=== PATIENT | female | born 1970 | race Caucasian/White ===

== ENCOUNTER 2019-09-27 12:38 | Emergency (ER) | payer MEDICARE ==
--- NOTE | 2019-09-27 12:50 | ERPHSYRPT ---
- History of Present Illness Time Seen by Provider: 09/27/19 12:49 Source: patient Exam Limitations: no limitations Physician History: 49-year-old white female presents to the emergency department with palpitations patient was seen at her GI doctor's office where she had a heart rate in the 150s patient denies chest pain. She has chronic shortness of breath. Patient denies abdominal pain. Patient was seen by her GI doctor for dyspepsia. Patient has a history of rheumatoid arthritis and is taking methotrexate, folic acid, meloxicam, prednisone and hydrocodone as well as Orencia. 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 Patient's heart rate on arrival is high 90s to low 100s. Timing/Duration: today Severity: mild Modifying Factors: Improves With: nothing Associated Symptoms: shortness of breath (Chronic), No nausea, No vomiting, No abdominal pain, No chest pain Allergies/Adverse Reactions: ciprofloxacin [From Cipro] Allergy (Verified 11/13/14 21:23) Hives ciprofloxacin HCl [From Cipro] Allergy (Verified 11/13/14 21:23) Hives Home Medications: Abatacept [Orencia] 125 mg SQ WEEKLY 02/04/13 [History] Folic Acid 1 mg [Folate 1 mg] 1 mg PO DAILY 02/04/13 [History] Hydrocodone/APAP 5/325 [[place] 5/325 mg] 1 each PO QIDPRN 02/04/13 [History ] Levothyroxine Sodium 100 Mcg [Synthroid 100 Mcg] 100 mcg PO DAILY 02/04/13 [History] Meloxicam 7.5 mg [Mobic 7.5 MG] 7.5 mg PO BID 02/04/13 [History] Methotrexate Sodium [Methotrexate] 25 mg IJ WEEKLY 02/04/13 [History] Prednisone 10 mg [Deltasone 10 mg] 10 mg PO DAILY 02/04/13 [History] Ferrous Sulfate 325 mg [Feosol 325 mg] 325 mg PO DAILY 01/17/14 [History] Hx Tetanus, Diphtheria Vaccination/Date Given: Yes (UP TO DATE) Hx Influenza Vaccination/Date Given: Yes Hx Pneumococcal Vaccination/Date Given: Yes Travel Risk - International Travel Have you traveled outside of the country in past 3 weeks: No Have you or anyone close to you been diagnosed with or: No Do your reside in a community with a known COVID-19 case?: Yes If Yes where:: [facility] - Coronavirus Screening Has patient experienced Coronavirus symptoms: No - Review of Systems Constitutional: No Symptoms Eyes: No Symptoms Ears, Nose, & Throat: No Symptoms Respiratory: Dyspnea on Exertion ([place]), No Cough, No Stridor, No Wheezing Cardiac: Palpitations, No Chest Pain Abdominal/Gastrointestinal: No Symptoms Genitourinary Symptoms: No Symptoms Musculoskeletal: No Symptoms Skin: No Symptoms Neurological: No Symptoms Psychological: No Symptoms Endocrine: No Symptoms Hematologic/Lymphatic: No Symptoms Immunological/Allergic: No Symptoms All Other Systems: Reviewed and Negative - Past Medical History Pertinent Past Medical History: Yes Neurological History: Peripheral Neuropathy ENT History: No Pertinent History Cardiac History: No Pertinent History Respiratory History: COPD Endocrine Medical History: Hypothyroidism Musculoskeletal History: Osteoarthritis, Rheumatoid Arthritis GI Medical History: No Pertinent History History: No Pertinent History Psycho-Social History: No Pertinent History Female Reproductive Disorders: No Pertinent History Other Medical History: Osteopenia, B hands and feet neuropathy - Past Surgical History Past Surgical History: Yes Neuro Surgical History: No Pertinent History Cardiac: No Pertinent History Respiratory: No Pertinent History Gastrointestinal: No Pertinent History Genitourinary: No Pertinent History Musculoskeletal: Joint Replacement, Other Female Surgical History: Section, Hysterectomy Other Surgical History: TMJ X 3 ,FOOT SURG, HAND SURG, LEFT ELBOW SURGERY FOR NERVE DAMAGE. BILAT HIP - Social History Smoking Status: Never smoker Exposure to second hand smoke: No Drug Use: none Patient Lives Alone: No - Nursing Vital Signs Nursing Vital Signs: Initial Vital Signs Temperature 96.8 F 09/27/19 12:40 Pulse Rate 92 H 09/27/19 12:40 Respiratory Rate 16 09/27/19 12:40 O2 Sat by Pulse Oximetry 92 L 09/27/19 12:40 - Physical Exam General Appearance: no apparent distress, alert, anxiety, obese Eye Exam: PERRL/EOMI, eyes nml inspection Ears, Nose, Throat Exam: normal ENT inspection, moist mucous membranes Neck Exam: normal inspection, non-tender, supple, full range of motion Respiratory Exam: normal breath sounds, lungs clear, airway intact, No chest tenderness, No respiratory distress Cardiovascular Exam: regular rate/rhythm, normal heart sounds, normal peripheral pulses Gastrointestinal/Abdomen Exam: soft, normal bowel sounds, No tenderness Pelvic Exam: not done Rectal Exam: not done Back Exam: normal inspection, normal range of motion, No CVA tenderness, No vertebral tenderness Extremity Exam: normal inspection, normal range of motion, pelvis stable Neurologic Exam: alert, oriented x 3, cooperative, rn lactation II-XII nml as tested, normal mood/affect, nml cerebellar function, nml station & gait Skin Exam: normal color, warm, dry Lymphatic Exam: No adenopathy SpO2 Interpretation: normal O2 Delivery: Room Air - Course Nursing assessment & vital signs reviewed: Yes EKG Interpreted by Me: RATE (95), Sinus Rhythm, NORMAL AXIS, NORMAL INTERVALS, NORMAL QRS, Non-specific ST Changes, Other (No acute ischemic changes. No comparison EKG) Ordered Tests: Active Orders 24 hr Category Date Time Status Epic [facility] STAT Care 09/27/19 13:02 Active EKG-ER Only STAT Care 09/27/19 12:59 Active IV Insertion STAT Care 09/27/19 12:59 Active Pulse Oximetry (ED) STAT Care 09/27/19 12:59 Active CBC W DIFF Stat Lab 09/27/19 13:09 Completed CMP Stat Lab 09/27/19 13:09 Completed CULTURE,URINE Stat Lab 09/27/19 Received MAGNESIUM Stat Lab 09/27/19 13:09 Completed NT PRO BNP Stat Lab 09/27/19 13:09 Completed TROPONIN Q3H Lab 09/27/19 13:09 Completed TROPONIN Q3H Lab 09/27/19 16:00 Ordered TROPONIN Q3H Lab 09/27/19 19:00 Ordered TROPONIN Q3H Lab 09/27/19 22:00 Ordered TROPONIN Q3H Lab 09/28/19 01:00 Ordered UA W/RFX UR CULTURE Stat Lab 09/27/19 Completed Holter Monitor ONCE RT 09/27/19 14:31 Ordered Medication Summary Discontinued Medications Generic Name Dose Route Start Last Admin Trade Name Freq PRN Reason Stop Dose Admin Sodium Chloride 1,000 mls @ 999 mls/hr 09/27/19 12:59 09/27/19 13:42 Sodium Chloride 0.9% 1000 Ml IV 09/27/19 13:59 999 mls/hr .Q1H1M STA Administration Sodium Chloride Confirm 09/27/19 13:42 Sodium Chloride 0.9% 1000 Ml Administered 09/27/19 13:43 Dose 1,000 mls @ ud .ROUTE .STK-MED ONE Lab/Rad Data: Laboratory Result Diagrams 09/27/19 13:09 09/27/19 13:09 Laboratory Results 09/27/19 09/27/19 09/27/19 Range/Units Unknown 13:09 13:09 WBC (4.0-10.5) K/mm3 RBC (4.1-5.4) M/mm3 Hgb (12.0-16.0) gm/dl Hct (35-47) % MCV (78-100) fl MCH (26-32) pg MCHC (32-36) g/dl RDW (11.5-14.0) % Plt Count (150-450) K/mm3 MPV (7.5-11.0) fl Gran % (36.0-66.0) % Eos # (Auto) (0-0.5) Absolute Lymphs (auto) (1.0-4.6) Absolute Monos (auto) (0.0-1.3) Lymphocytes % (24.0-44.0) % Monocytes % (0.0-12.0) % Eosinophils % (0.00-5.0) % Basophils % (0.0-0.4) % Absolute Granulocytes (1.4-6.9) Basophils # (0-0.4) Sodium 142 (137-145) mmol/L Potassium 3.6 (3.5-5.1) mmol/L Chloride 109 H (98-107) mmol/L Carbon Dioxide 23 (22-30) mmol/L Anion Gap 13.3 (5-15) MEQ/L BUN 16 (7-17) mg/dL Creatinine 0.93 (0.52-1.04) mg/dL Estimated GFR > 60.0 ML/MIN Glucose 129 H (74-106) mg/dL Calcium 9.3 (8.4-10.2) mg/dL Magnesium 1.9 (1.6-2.3) mg/dL Total Bilirubin 0.60 (0.2-1.3) mg/dL AST 42 H (14-36) U/L ALT 34 (0-35) U/L Alkaline Phosphatase 132 H (38-126) U/L Troponin I < 0.012 (0.000-0.034) ng/mL NT-Pro-B Natriuret Pep 37.5 (0-900) pg/mL Serum Total Protein 7.3 (6.3-8.2) g/dL Albumin 4.3 (3.5-5.0) g/dL Urine Color YELLOW (YELLOW) Urine Appearance CLOUDY (CLEAR) Urine pH 5.0 (5-6) Ur Specific [place] 1.023 (1.005-1.025) Urine Protein 30 (Negative) Urine Ketones NEGATIVE (NEGATIVE) Urine Blood NEGATIVE (0-5) Jason/ul Urine Nitrite NEGATIVE (NEGATIVE) Urine Bilirubin NEGATIVE (NEGATIVE) Urine Urobilinogen NEGATIVE (0-1) mg/dL Ur Leukocyte Esterase MODERATE (NEGATIVE) Urine WBC (Auto) 11-15 (0-5) /HPF Urine RBC (Auto) 6-10 (0-2) /HPF U Epithel Cells (Auto) FEW (FEW) /HPF Urine Bacteria (Auto) RARE (NEGATIVE) /HPF Urine Mucus (Auto) MANY (NEGATIVE) /HPF Urine Culture Reflexed YES (NO) Urine Glucose NEGATIVE (NEGATIVE) mg/dL 09/27/19 Range/Units 13:09 WBC 8.3 (4.0-10.5) K/mm3 RBC 4.88 (4.1-5.4) M/mm3 Hgb 13.4 (12.0-16.0) gm/dl Hct 42.6 (35-47) % MCV 87.3 (78-100) fl MCH 27.5 (26-32) pg MCHC 31.5 L (32-36) g/dl RDW 14.9 H (11.5-14.0) % Plt Count 396 (150-450) K/mm3 MPV 9.9 (7.5-11.0) fl Gran % 71.9 H (36.0-66.0) % Eos # (Auto) 0.26 (0-0.5) Absolute Lymphs (auto) 1.46 (1.0-4.6) Absolute Monos (auto) 0.56 (0.0-1.3) Lymphocytes % 17.6 L (24.0-44.0) % Monocytes % 6.8 (0.0-12.0) % Eosinophils % 3.1 (0.00-5.0) % Basophils % 0.6 (0.0-0.4) % Absolute Granulocytes 5.95 (1.4-6.9) Basophils # 0.05 (0-0.4) Sodium (137-145) mmol/L Potassium (3.5-5.1) mmol/L Chloride (98-107) mmol/L Carbon Dioxide (22-30) mmol/L Anion Gap (5-15) MEQ/L BUN (7-17) mg/dL Creatinine (0.52-1.04) mg/dL Estimated GFR ML/MIN Glucose (74-106) mg/dL Calcium (8.4-10.2) mg/dL Magnesium (1.6-2.3) mg/dL Total Bilirubin (0.2-1.3) mg/dL AST (14-36) U/L ALT (0-35) U/L Alkaline Phosphatase (38-126) U/L Troponin I (0.000-0.034) ng/mL NT-Pro-B Natriuret Pep (0-900) pg/mL Serum Total Protein (6.3-8.2) g/dL Albumin (3.5-5.0) g/dL Urine Color (YELLOW) Urine Appearance (CLEAR) Urine pH (5-6) Ur Specific [place] (1.005-1.025) Urine Protein (Negative) Urine Ketones (NEGATIVE) Urine Blood (0-5) Jason/ul Urine Nitrite (NEGATIVE) Urine Bilirubin (NEGATIVE) Urine Urobilinogen (0-1) mg/dL Ur Leukocyte Esterase (NEGATIVE) Urine WBC (Auto) (0-5) /HPF Urine RBC (Auto) (0-2) /HPF U Epithel Cells (Auto) (FEW) /HPF Urine Bacteria (Auto) (NEGATIVE) /HPF Urine Mucus (Auto) (NEGATIVE) /HPF Urine Culture Reflexed (NO) Urine Glucose (NEGATIVE) mg/dL - Progress Progress: improved Progress Note: 09/27/19 14:32 Medical decision making: 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 However, the patient arrives to the emergency department with a normal heart rate. Her vital signs are normal upon arrival. She has been in normal sinus rhythm with a normal blood pressure throughout her stay here. Her diagnosis is palpitations as well as urinary tract infection. It is possible that her urinary tract infection has caused her palpitation symptoms. We will treat her urinary tract infection here in the emergency room with a gram of Rocephin. We will also place her on a Holter monitor to be monitored for 48 hours. Her cardiac work-up here is negative. We will have her see a contract management specialist as an outpatient and write a prescription for 7 more days of an antibiotic to treat her urinary tract infection. Counseled pt/family regarding: lab results, diagnosis, need for follow-up, rad results - Departure Departure Disposition: Home Clinical Impression: Palpitations, Urinary tract infection Condition: Stable Critical Care Time: No Referrals: OSKAR PARK [Primary Care Provider] - Additional Instructions: Drink plenty of fluids. Take your antibiotics as prescribed. Follow-up with your primary care physician and a farm owner operator for further evaluation. Wear the Holter monitor as prescribed. Prescriptions: Cefdinir 300 mg PO BID 7 Days #14 capsule
[2019-09-27 13:09] LABS: Absolute Neutrophil Ct (ANC) 5.95 (1.4-6.9); BASOPHIL % 0.6 % (0.0-0.4); Basophil (Absolute #) 0.05 (0-0.4); Eosinophil % 3.1 % (0.00-5.0); Eosinophil (Absolute #) 0.26 (0-0.5); Hematocrit 42.6 % (35-47); Hemoglobin 13.4 gm/dl (12.0-16.0); Lymphocyte (Absolute #) 1.46 (1.0-4.6); Lymphocytes % 17.6 % (24.0-44.0); Mean Cell Volume 87.3 fl (78-100); Mean Corpuscular Hemoglobin 27.5 pg (26-32); Mean Corpuscular Hgb Concent. 31.5 g/dl (32-36); Mean Platelet Volume 9.9 fl (7.5-11.0); Monocyte (Absolute #) 0.56 (0.0-1.3); Monocytes % 6.8 % (0.0-12.0); Neutrophil % 71.9 % (36.0-66.0); Platelet Count 396 K/mm3 (150-450); Red Blood Count 4.88 M/mm3 (4.1-5.4); Red Cell Distribution Width 14.9 % (11.5-14.0); White Blood Count 8.3 K/mm3 (4.0-10.5)
[2019-09-27 13:31] LABS: ALBUMIN 4.3 g/dL (3.5-5.0); ALKALINE PHOSPHATASE 132 U/L (38-126); ANION GAP 13.3 MEQ/L (5-15); BLOOD UREA NITROGEN 16 mg/dL (7-17); CHLORIDE 109 mmol/L (98-107); Calcium 9.3 mg/dL (8.4-10.2); Carbon Dioxide 23 mmol/L (22-30); Creatinine 1 0.93 mg/dL (0.52-1.04); Glucose 129 mg/dL (74-106); MAGNESIUM 1.9 mg/dL (1.6-2.3); NT PRO BNP 37.5 pg/mL (0-900); Potassium 3.6 mmol/L (3.5-5.1); SGOT/AST 42 U/L (14-36); SGPT/ALT 34 U/L (0-35); SODIUM 142 mmol/L (137-145); Total Protein 7.3 g/dL (6.3-8.2)
[2019-09-27] MEDS ORDERED: Sodium Chloride 0.9% 1000 ML 1,000 ML ONE (13:42)
[2019-09-27] MEDS: Sodium Chloride 0.9% 1000 ML 1,000 ML IV STA (13:42)
[2019-09-27 14:07] LABS: Appearance CLOUDY (CLEAR); Bacteria RARE /HPF (NEGATIVE); Bilirubin NEGATIVE (NEGATIVE); Blood NEGATIVE Ery/ul (0-5); Epithelial Cells FEW /HPF (FEW); Glucose NEGATIVE (NEGATIVE); Ketones NEGATIVE (NEGATIVE); Leukocyte Esterase MODERATE (NEGATIVE); Mucus MANY /HPF (NEGATIVE); Nitrite NEGATIVE (NEGATIVE); Protein,Urine Dip 30 (Negative); Specific Gravity 1.023 (1.005-1.025); Urobilinogen NEGATIVE mg/dL (0-1)
[2019-09-27] MEDS ORDERED: ROCEPHIN 1 Gm-D5w 50 ml Bag** 1 G/50 ML IVPB IV ONE (14:37)
[2019-09-27] MEDS: ROCEPHIN 1 Gm-D5w 50 ml Bag** 1 G/50 ML IVPB IV STA (14:44)
[2019-09-27 16:19] VITALS: BP 119/79; PULSE 88; O2SAT 92
== END 2019-09-27 16:16 | disposition home or self-care (01) ==
LOC: ED 12:38
DX: R00.2 Palpitations (principal); N39.0 Urinary tract infection, site not specified; M06.9 Rheumatoid arthritis, unspecified; G62.9 Polyneuropathy, unspecified; M85.80 Other specified disorders of bone density and structure, unspecified site; Z79.899 Other long term (current) drug therapy; J44.9 Chronic obstructive pulmonary disease, unspecified
CPT/HCPCS: 36000; 36415; 80053; 81001; 83735; 83880; 84484; 85025; 87086; 93005; 93041; 94760; 96360; 96365; 99284; J0696

== ENCOUNTER 2021-11-05 05:58 | Day surgery (SDC) | payer MEDICARE ==
[2021-11-05] MEDS ORDERED: Lactated Ringers 1,000 ML IV ONE ×2 (06:43→08:07)
[2021-11-05] MEDS ORDERED: Lactated Ringers 1,000 ML IV SCH (07:00)
[2021-11-05] MEDS ORDERED: DIPRIVAN 200 MG/20 ML IV ONE ×2 (07:29→07:44)
[2021-11-05] MEDS ORDERED: Versed 2 MG/2 ML Injection ONE (07:29)
[2021-11-05 08:47] VITALS: BP 144/83; PULSE 77; O2SAT 99
--- NOTE | 2021-11-05 09:53 | OP ---
SURGERY DATE/TIME: 11/05/2021 0731 PREOPERATIVE DIAGNOSIS: History of colon polyps. POSTOPERATIVE DIAGNOSIS: Normal colon. PROCEDURE: Colonoscopy. SURGEON: Dr. Jaspreet Garcia. ANESTHESIA: MAC. Medications given by anesthesia department. HISTORY: The patient is a 51-year-old white female who reports now five years from her previous colonoscopy. She reports five polyps were removed on the previous examination. The patient was felt the need to have endoscopic evaluation. She was appraised of the risks of the procedure including the risk of perforation, phlebitis, untoward reaction to medication, bleeding and missed lesions. The patient verbalized her understanding and desired to have the procedure performed. DESCRIPTION OF PROCEDURE: The patient was given the medications by the anesthesia department. She had continuous pulse oximetry, ECG monitoring, intermittent blood pressure monitoring during the examination. She was placed in the left lateral decubitus position. A digital rectal examination was performed and revealed normal anal sphincter tone and no masses. The flexible Olympus pediatric colonoscope was used to intubate the rectum. A view of the colon was developed sequentially to the cecum. Upon insertion and withdrawal, including a retroflex view in the rectum, no mucosal lesions were encountered. The scope was removed from the patient who tolerated the procedure well and was sent back to OP recovery in good condition. The prep was noted to be fair.
== END 2021-11-05 08:58 | disposition home or self-care (01) ==
LOC: SDC 05:58
PROVIDERS: ATTEND Family Medicine
DX: Z09 Encounter for follow-up examination after completed treatment for conditions other than malignant neoplasm (principal); Z86.010 Personal history of colon polyps
CPT/HCPCS: J2250; J2704

== ENCOUNTER 2023-06-07 15:56 | Emergency (ER) | payer MEDICARE ==
[2023-06-07 16:15] VITALS: TEMP 97.1
[2023-06-07 16:28] LABS: Appearance Clear (Clear); Bacteria None Seen /HPF (None Seen); Bilirubin Negative (Negative); Blood Negative (Negative); Epithelial Cells Rare /HPF (None Seen); Glucose, Urine Negative (Negative); Hyaline Casts NONE SEEN /LPF (0-2); Ketones Trace (Negative); Leukocyte Esterase Small (Negative); Nitrite Negative (Negative); Ph 6.5 (4.6-8.0); Protein,Urine Dip Negative (Negative); RBC 0-2 /HPF (0-5)
[2023-06-07 16:29] LABS: ADD URINE CULTURE? NO (NO)
[2023-06-07] MEDS ORDERED: MORPHINE SULFATE 2 MG INJ IV ONE ×2 (16:37→18:49)
[2023-06-07] MEDS ORDERED: MORPHINE SULFATE 2 MG INJ ONE ×2 (16:40→18:55)
[2023-06-07] MEDS ORDERED: Sodium Chloride 0.9% 1000 ML 1,000 ML ONE (16:40)
[2023-06-07] MEDS ORDERED: Sodium Chloride 0.9% 1000 ML 1,000 ML IV SCH (16:45)
[2023-06-07 16:46] LABS: Absolute Neutrophil Ct (ANC) 3.59 x10^3/uL (1.4-6.9); BASOPHIL % 1.1 % (0.0-0.4); Basophil (Absolute #) 0.06 x10^3/uL (0-0.4); Eosinophil % 1.2 % (0.00-5.0); Eosinophil (Absolute #) 0.07 x10^3/uL (0-0.5); Hematocrit 39.3 % (35-47); Hemoglobin 12.3 g/dL (12.0-16.0); IMMATURE GRAN # 0.01 x10^3u/L (0.00-0.03); IMMATURE GRAN % 0.2 % (0.00-0.4); Lymphocyte (Absolute #) 1.47 x10^3/uL (1.0-4.6); Lymphocytes % 26.2 % (24.0-44.0); Mean Cell Volume 87.5 fL (78-100); Mean Corpuscular Hemoglobin 27.4 pg (26-32); Mean Corpuscular Hgb Concent. 31.3 g/dL (32-36); Mean Platelet Volume 9.7 fL (7.5-11.0); Monocyte (Absolute #) 0.41 x10^3/uL (0.0-1.3); Monocytes % 7.3 % (0.0-12.0); Platelet Count 421 x10^3/uL (150-450); Red Blood Count 4.49 x10^6/uL (4.1-5.4); Red Cell Distribution Width 14.4 % (11.5-14.0); White Blood Count 5.6 x10^3/uL (4.0-10.5)
--- NOTE | 2023-06-07 16:49 | ERPHSYRPT ---
- History of Present Illness Historian: patient Exam Limitations: no limitations Patient Subjective Stated Complaint: Pt c/o of caren lower abdominal pain for the past 6 days Triage Nursing Assessment: Pt brought self to the ER, vitals wnl, rates abdominal pain as 10/10, pain was originally on the LLQ and now it is on caren sides, the pain comes in waves and is stabbing and sharp, no correlation with eating, pulses normal, skin n/w/d, still has appendix, pt states that she drinks a lot of water but her urine was dark, pt walks with a walker, pt has a hx of gastric bypass Timing/Duration: week(s) (1), intermittent Activities at Onset: none Quality: sharpness, stabbing Abdominal Pain Onset Location: RLQ, LLQ, suprapubic Pain Radiation: RLQ, LLQ Severity of Pain-Max: severe Severity of Pain-Current: moderate Modifying Factors: Improves With: nothing Associated Symptoms: denies symptoms Previous symptoms: same symptoms as today (x 1wk) Hx Tetanus, Diphtheria Vaccination/Date Given: Yes (UP TO DATE) Hx Influenza Vaccination/Date Given: Yes Hx Pneumococcal Vaccination/Date Given: Yes <Elbert Dooley - Last Filed: 06/07/23 19:03> <STEPHEN DAVILA - Last Filed: 06/07/23 19:33> - History of Present Illness Time Seen by Provider: 06/07/23 16:15 Physician History: 52yo f pmhx RA presents for low abdominal pain x 1wk, states pain is intermitte nt, stabbing in nature, started in LLQ but now involves RLQ and suprapubic region. Mother denies any n/v/d, states she has been eating/drinking like normal, has not eaten anything out of the ordinary. Pt reports hx of hysterectomy in 2011. Pt denies any cp, soa, MANUEL, vaginal bleeding, recent abdominal trauma. (Elbert Dooley) Allergies/Adverse Reactions: amoxicillin [From Augmentin] Allergy (Verified 06/07/23 16:15) Hives ciprofloxacin [From Cipro] Allergy (Verified 06/07/23 16:15) Hives ciprofloxacin HCl [From Cipro] Allergy (Verified 06/07/23 16:15) Hives clavulanic acid [From Augmentin] Allergy (Verified 06/07/23 16:15) Hives Home Medications: Albuterol Sulfate [Proair Respiclick] 90 mcg IH UD 10/25/21 [History] Duloxetine HCl [Cymbalta] 60 mg PO BID 10/25/21 [History] Hydroxychloroquine Sulfate [Plaquenil] 150 mg PO BID 10/25/21 [History] Levothyroxine Sodium 150 Mcg [Synthroid 150 Mcg] 150 mcg PO DAILY 10/25/21 [History] Multivitamin 1 each PO TID 10/25/21 [History] Rituximab 500 MG [Rituxan 500 MG] 0 mg IV UD 10/25/21 [History] Triamcinolone 0.1% Cream [Kenalog 0.1% Cream 15 gm] 1 applic TP UD PRN 10/25/21 [History] dilTIAZem HCL [Cardizem] 30 mg PO QID 10/25/21 [History] Imipramine HCl 75 mg PO HS 11/13/22 [History] methocarbamoL [Methocarbamol] 750 mg PO Q8HPRN PRN 11/13/22 [History] Denosumab 60 mg [Prolia 60 mg Injection] 60 mg SQ DIRECTIONS UNKNOWN 01/07/23 [History] Solifenacin Succinate [Vesicare] 10 mg PO DAILY 05/15/23 [History] Travel Risk - International Travel Have you traveled outside of the country in past 3 weeks: No - Vaccine Status Have you recieved a Covid-19 vaccination: Yes [employer] Member: [employer] - Vaccination Dates Date of 2cond Vaccination (if applicable): 2020 <Elbert Dooley - Last Filed: 06/07/23 19:03> - Review of Systems Constitutional: No Symptoms Respiratory: No Symptoms Cardiac: No Symptoms Abdominal/Gastrointestinal: Abdominal Pain, No Nausea, No Vomiting, No Diarrhea, No Constipation, No Hematemesis, No Appetite Changes Genitourinary Symptoms: No Dysuria, No Frequency, No Hematuria, No Urgency, No Vaginal Bleeding <Elbert Dooley - Last Filed: 06/07/23 19:03> - Past Medical History Pertinent Past Medical History: Yes Neurological History: Peripheral Neuropathy ENT History: No Pertinent History Cardiac History: Arrhythmia Respiratory History: COPD Endocrine Medical History: Hyperthyroidism, Other Musculoskeletal History: Rheumatoid Arthritis GI Medical History: No Pertinent History History: No Pertinent History Psycho-Social History: No Pertinent History Female Reproductive Disorders: No Pertinent History Other Medical History: RAYNAUD'S, FATTY LIVER, HX KIDNEY STONES 2016. PT. HAS BILATERAL THAS - REVISION. BILATERAL TKAS 2 REVISIONS R AND 1 L. - Past Surgical History Past Surgical History: Yes Neuro Surgical History: No Pertinent History Cardiac: No Pertinent History Respiratory: No Pertinent History Gastrointestinal: No Pertinent History Genitourinary: No Pertinent History Musculoskeletal: Joint Replacement, Other Female Surgical History: Section, Hysterectomy Other Surgical History: TMJ X 3 ,FOOT SURG, HAND SURG, LEFT ELBOW SURGERY FOR NERVE DAMAGE. BILAT HIP. caren knee replacement/see above - Social History Smoking Status: Never smoker Exposure to second hand smoke: No Drug Use: none Patient Lives Alone: Yes <Elbert Dooley - Last Filed: 06/07/23 19:03> - Physical Exam General Appearance: no apparent distress Respiratory Exam: normal breath sounds, lungs clear, airway intact Cardiovascular Exam: regular rate/rhythm, normal heart sounds Gastrointestinal/Abdomen Exam: soft, tenderness (over suprapubic region), No distention, No guarding, No rebound Pelvic Exam: not done Neurologic Exam: alert, oriented x 3, cooperative SpO2 Interpretation: normal SpO2: 100 O2 Delivery: Room Air <Elbert Dooley - Last Filed: 06/07/23 19:03> - Nursing Vital Signs Nursing Vital Signs: Initial Vital Signs Temperature 97.1 F 06/07/23 16:01 Pulse Rate 100 H 06/07/23 16:01 Blood Pressure 126/84 06/07/23 16:01 O2 Sat by Pulse Oximetry 100 06/07/23 16:01 Pain Scale Pain Intensity 0 - Course Nursing assessment & vital signs reviewed: Yes <STEPHEN DAVILA - Last Filed: 06/07/23 19:33> Ordered Tests: Active Orders 24 hr Category Date Time Status IV Insertion STAT Care 06/07/23 16:15 Active ABDOMEN AND PELVIS W CONTRAST [CT] Stat Exams 06/07/23 17:31 Completed CBC W DIFF Stat Lab 06/07/23 16:30 Completed CMP Stat Lab 06/07/23 16:30 Completed LIPASE Stat Lab 06/07/23 16:30 Completed UA W/RFX UR CULTURE Stat Lab 06/07/23 16:16 Completed Medication Summary Generic Name Dose Route Start Last Admin Trade Name Prerna PRN Reason Stop Dose Admin Sodium Chloride 1,000 mls @ 100 mls/hr 06/07/23 16:45 06/07/23 16:43 Sodium Chloride 0.9% 1000 Ml IV 07/07/23 16:44 100 mls/hr .Q10H LOLLY Administration Discontinued Medications Generic Name Dose Route Start Last Admin Trade Name Prerna PRN Reason Stop Dose Admin Morphine Sulfate 2 mg 06/07/23 16:37 06/07/23 16:43 Morphine Sulfate 2 Mg/Ml Inj IV 06/07/23 16:38 2 mg STAT ONE Administration Morphine Sulfate Confirm 06/07/23 16:40 Morphine Sulfate 2 Mg/Ml Inj Administered 06/07/23 16:41 Dose 2 mg .ROUTE .STK-MED ONE Morphine Sulfate 2 mg 06/07/23 18:49 06/07/23 18:57 Morphine Sulfate 2 Mg/Ml Inj IV 06/07/23 18:50 2 mg STAT ONE Administration Morphine Sulfate Confirm 06/07/23 18:55 Morphine Sulfate 2 Mg/Ml Inj Administered 06/07/23 18:56 Dose 2 mg .ROUTE .STK-MED ONE Lab/Rad Data: Laboratory Result Diagrams 06/07/23 16:30 06/07/23 16:30 Laboratory Results 06/07/23 06/07/23 06/07/23 Range/Units 16:30 16:30 16:16 WBC 5.6 (4.0-10.5) x10^3/uL RBC 4.49 (4.1-5.4) x10^6/uL Hgb 12.3 (12.0-16.0) g/dL Hct 39.3 (35-47) % MCV 87.5 (78-100) fL MCH 27.4 (26-32) pg MCHC 31.3 L (32-36) g/dL RDW 14.4 H (11.5-14.0) % Plt Count 421 (150-450) x10^3/uL MPV 9.7 (7.5-11.0) fL Gran % 64.0 (36.0-66.0) % Immature Gran % (Auto) 0.2 (0.00-0.4) % Nucleat RBC Rel Count 0.0 (0.00-0.1) % Eos # (Auto) 0.07 (0-0.5) x10^3/uL Immature Gran # (Auto) 0.01 (0.00-0.03) x10^3u/L Absolute Lymphs (auto) 1.47 (1.0-4.6) x10^3/uL Absolute Monos (auto) 0.41 (0.0-1.3) x10^3/uL Absolute Nucleated RBC 0.00 (0.00-0.01) x10^3u/L Lymphocytes % 26.2 (24.0-44.0) % Monocytes % 7.3 (0.0-12.0) % Eosinophils % 1.2 (0.00-5.0) % Basophils % 1.1 (0.0-0.4) % Absolute Granulocytes 3.59 (1.4-6.9) x10^3/uL Basophils # 0.06 (0-0.4) x10^3/uL Sodium 138 (137-145) mmol/L Potassium 3.7 (3.5-5.1) mmol/L Chloride 110 H (98-107) mmol/L Carbon Dioxide 23 (22-30) mmol/L Anion Gap 8.8 (5-15) MEQ/L BUN 12 (7-17) mg/dL Creatinine 0.64 (0.52-1.04) mg/dL Estimated GFR 105.6 ML/MIN Glucose 118 H (74-106) mg/dL Calcium 8.6 (8.4-10.2) mg/dL Total Bilirubin 0.90 (0.2-1.3) mg/dL AST 29 (14-36) U/L ALT 22 (0-35) U/L Alkaline Phosphatase 110 (38-126) U/L Serum Total Protein 7.2 (6.3-8.2) g/dL Albumin 4.2 (3.5-5.0) g/dL Lipase 23 (23-300) U/L Urine Color Yellow (Yellow) Urine Appearance Clear (Clear) Urine pH 6.5 (4.6-8.0) Ur Specific [place] 1.020 (1.005-1.030) Urine Protein Negative (Negative) Urine Glucose (UA) Negative (Negative) mg/dL Urine Ketones Trace A (Negative) Urine Blood Negative (Negative) Urine Nitrite Negative (Negative) Urine Bilirubin Negative (Negative) Urine Urobilinogen 1.0 A (0.2) mg/dL Ur Leukocyte Esterase Small A (Negative) U Hyaline Cast (Auto) NONE SEEN (0-2) /LPF Urine Microscopic RBC 0-2 (0-5) /HPF Urine Microscopic WBC 3-5 (0-5) /HPF Ur Epithelial Cells Rare (None Seen) /HPF Urine Bacteria None Seen (None Seen) /HPF Urine Culture Reflexed NO (NO) <Elbert Dooley - Last Filed: 06/07/23 19:03> - Progress Progress: improved <STEPHEN DAVILA - Last Filed: 06/07/23 19:33> - Progress Progress Note: 06/07/23 19:03 pt discussed and care signed out to Dr Callaway (Elbert Dooley) 06/07/23 19:23 The patient was initially seen and managed by , please refer to his detailed H&P. The patient presented with lower abdominal pain X 7 days. Her initial work up is WNL, CT Abdomen and Pelvis did not demonstrate any acute findings, except for the 10 cm left adrenal nodule. The patient's pain right now is down to 2/10, the patient received 2 doses of Morphine sulfate, she is feeling better. Her physical exam, apart from benign lower abdominal tenderness is Benign. The above findings were discussed with the patient, all her questions and concerns were answered and addressed. The patient will be DC home. Follow up with family MD Tylenol 1000 mg, 4 times as needed for pain May need to Follow up with a GI MD on OP bases Follow up as needed for worsening symptoms. (STEPHEN DAVILA) <Elbert Dooley - Last Filed: 06/07/23 19:03> - Departure Departure Disposition: Home Critical Care Time: No <STEPHEN DAVILA - Last Filed: 06/07/23 19:33> - Departure Clinical Impression: Lower abdominal pain of unknown etiology Condition: Stable Referrals: RADHA NAJERA [Primary Care Provider] - Follow up/PCP as directed Instructions: Severe Abdominal Pain, Adult (DC) Additional Instructions: Take Tylenol 1000 mg , 4times as needed for Abdominal pain.
[2023-06-07 16:53] LABS: ALBUMIN 4.2 g/dL (3.5-5.0); ANION GAP 8.8 MEQ/L (5-15); BILIRUBIN,TOTAL 0.9 mg/dL (0.2-1.3); Calcium 8.6 mg/dL (8.4-10.2); Creatinine 1 0.64 mg/dL (0.52-1.04); EST GLOMERULAR FILTRATION RATE 105.6 ML/MIN; Potassium 3.7 mmol/L (3.5-5.1); Total Protein 7.2 g/dL (6.3-8.2)
[2023-06-07 18:08] VITALS: O2SAT 100
--- NOTE | 2023-06-07 18:51 | XRAY ---
CLINICAL HISTORY:abdominal pain COMPARISON:Prior CT abdomen pelvis dated 07/07/2017. TECHNIQUE:CT of abdomen and pelvis was performed with IV contrast, including venous and delayed phase images. The images were obtained in axial plane with coronal and sagittal reconstructions. FINDINGS: Lower chest: No concerning findings. Liver: Diffuse hepatic steatosis. No focal lesions. No radiodense cholelithiasis or cholecystitis. Nondilated biliary system. Mild fatty atrophy of the pancreatic head and body. No mass or cyst. Nondilated pancreatic duct. There is redemonstration of a 10.4 mm hypoattenuating nodule in left adrenal, slightly increased in size since the prior (previously measuring 7.5 mm when measured similarly). Possibly an adenoma. Unremarkable right adrenal. No focal lesions in the spleen. Bilateral kidneys show no calculi, mass or hydroureteronephrosis. 1.2 cm simple cyst is seen in the upper pole of right kidney. Underdistended urinary bladder, limited visualization due to beam hardening artifacts as a result of both hip prosthesis. Surgical clips are seen in the region of stomach and small bowel lobes in the midline with normal anastomotic sites. No small or large bowel loop obstruction or distention. No bowel wall edema. No appendicitis. No enlarged abdominopelvic lymph nodes. No ascites. No pneumoperitoneum. Bilateral hip joint orthopedic prosthesis. No destructive osseous lesions. IMPRESSION: 1. Mild hepatic steatosis. 2. Redemonstration of a 10.4 mm left adrenal nodule, slightly increased in size since the prior CT. Possibly an adenoma. 3. A right renal cyst is also a new finding, a Bosniak grade 2 cyst. It may be followed up on a nonemergent ultrasound if clinically indicated. Electronically Signed by: Perez Louis MD. (06/07/2023 18:46:41 EST)
[2023-06-07 19:20] VITALS: BP 132/85; PULSE 79; RESP 20
== END 2023-06-07 19:45 | disposition home or self-care (01) ==
LOC: ED 15:56
DX: R10.30 Lower abdominal pain, unspecified (principal); Z79.899 Other long term (current) drug therapy
CPT/HCPCS: 36000; 36415; 74177; 80053; 81001; 83690; 85025; 96374; 96376; 99284; J2270